=== PATIENT | male | born 1950 | race Caucasian/White ===

== ENCOUNTER 2017-03-02 22:33 | Emergency (ER) | payer OTHER ==
[~2017-03-02] VITALS: Ht 175.3 cm; Wt 80.0 kg
[2017-03-02 22:36] VITALS: Ht 175.3 cm; Wt 80.0 kg
[2017-03-02] MEDS ORDERED: HYDR-906 PO (23:55)
[2017-03-02] MEDS ORDERED: IBUP400T22 PO (23:55)
[2017-03-02] MEDS ORDERED: CEPH-443 PO (23:55)
[2017-03-02] MEDS ORDERED: METF500T4 PO (23:59)
[2017-03-03] MEDS ORDERED: HYDROCODONE/APAP (5/325) TAB PO ONE
--- NOTE | 2017-03-03 00:03 | ERD ---
ER Documentation Chief Complaint Date/Time DATE: 03/02/17 TIME: 23:58 Chief Complaint puffy skin around his toenails, hx DM HPI 67-year-old male presents to emergency department for blisters in bilateral feet area, on the toes, patient was out today, was wearing tight shoes, had blisters on toes of both feet. Patient tried to open the blister exposing raw skin on the left side. Patient's complete of pain sharp in succession scale, is worse upon touching the area. Patient denies any discharge on affected area. Patient denies any numbness or tingling. Patient denies any fever or chills. ROS All systems reviewed and are negative except as per history of present illness. Medications Home Meds Active Scripts Cephalexin* (Keflex*) 500 Mg Capsule, 500 MG PO QID for 10 Days, CAP Prov:YURI CHRISTINE NP 03/02/17 Ibuprofen* (Motrin*) 400 Mg Tab, 400 MG PO Q6H Y for PAIN AND OR ELEVATED TEMP, #30 TAB Prov:YURI CHRISTINE NP 03/02/17 Hydrocodone/Acetaminophen ([place] 5-325 Tablet) 1 Each Tablet, 1 TAB PO Q6H Y for SEVERE PAIN LEVEL 7-10, #20 TAB Prov:YURI CHRISTINE NP 03/02/17 Reported Medications Metformin Hcl* (Metformin Hcl*) Unknown Strength Tablet, PO WITH BREAKFAST, #30 TAB 03/02/17 Allergies Allergies: Coded Allergies: No Known Allergy (Unverified , 03/02/17) PMhx/Soc Medical and Surgical Hx: pt denies Surgical Hx Hx Cardiac Disorders: Yes (DM) Hx Alcohol Use: No Hx Substance Use: No Hx Tobacco Use: No Smoking Status: Never smoker FmHx Family History: No coronary disease, No diabetes, No other Physical Exam Vitals Vital Signs Date Time Temp Pulse Resp B/P Pulse Ox O2 Delivery O2 Flow Rate FiO2 03/02/17 22:36 98.0 92 20 148/74 99 Physical Exam GENERAL: The patient is well developed and appropriate for usual state of health, in no apparent distress. CHEST: Clear to auscultation bilaterally. There are no rales, wheezes or rhonchi. HEART: Regular rate and rhythm. No murmurs, clicks, rubs or gallops. No S3 or S4. ABDOMEN: Soft, nontender and nondistended. Good bowel sounds. No rebound or guarding. No gross peritonitis. No gross organomegaly or masses. No [place] sign or McBurney point tenderness. BACK: No midline or flank tenderness. EXTREMITIES: Equal pulses bilaterally. There is no peripheral clubbing, cyanosis or edema. No focal swelling or erythema. Full range of motion. Grossly neurovascularly intact. NEURO: Alert and oriented. Cranial nerves 2-12 intact. Motor strength in all 4 extremities with 5/5 strength. Sensation grossly intact. Normal speech and gait. SKIN: Noted blisters on the right foot toes, noted open raw skin on the left foot toes, no symptoms of infection.There is no apparent rash or petechia. The skin is warm and dry. HEMATOLOGIC AND LYMPHATIC: There is no evidence of excessive bruising or lymphedema. No gross cervical, axillary, or inguinal lymphadenopathy. Results 24 hrs Current Medications Medications (Trade) Dose Ordered Sig/Taz Route PRN Reason Start Time Stop Time Status Last Admin Dose Admin Acetaminophen/ Hydrocodone Bitart ([place] (5/325)) 1 tab ONCE ONCE PO 03/03/17 00:00 03/03/17 00:01 Patient was given medication for pain here in emergency department, after treatment, patient verbalized feeling much better. Patient's pain is improved. Procedures/MDM Medical decision making: Patient had blisters on bilateral foot from wearing ill fitted shoes, patient took off the blisters and expose Raw skin, since patient is diabetic, will cover with Keflex to prevent infection of affected area. No symptoms of any neurovascular compromise. Prescription was given for Keflex, [place], ibuprofen, Zofran Zofran with primary care doctor in 2 days for wound check, possibly pheresis specialist for further management since patient is diabetic. Patient is advised to return to emergency department for any worsening symptoms. Disposition: Home. Stable. Departure Diagnosis: Primary Impression: Blister of foot Encounter type: initial encounter Laterality: unspecified laterality Qualified Code: S90.829A - Blister of foot, unspecified laterality, initial encounter Condition: Stable Patient Instructions: YURI Owens NP Mar 03, 2017 00:03
== END 2017-03-03 00:27 | disposition home or self-care (01) ==
LOC: FTE 22:33
DX: S90.821A Blister (nonthermal), right foot, initial encounter (principal); E11.9 Type 2 diabetes mellitus without complications; X58.XXXA Exposure to other specified factors, initial encounter; Y92.9 Unspecified place or not applicable; Z79.84 Long term (current) use of oral hypoglycemic drugs
CPT/HCPCS: Z7502; Z7610; 99284